=== PATIENT | female | born 1940 | race Two or more races ===

== ENCOUNTER → 2022-01-16 | Outpatient (CLI) | payer OTHER | END | disposition home or self-care (01) | LOC: XYW 14:44 | PROVIDERS: ATTEND Internal Medicine | DX: I08.3 Combined rheumatic disorders of mitral, aortic and tricuspid valves (principal); I48.11 Longstanding persistent atrial fibrillation | CPT/HCPCS: 93306 ==

== ENCOUNTER → 2022-01-30 | Outpatient (CLI) | payer OTHER ==
[~2022-01-30] MED LIST: DRON400T PO; METO25TA5 PO; PANT1INJ3 PO; SIMV10TA84 PO; TRAZ50TA2 PO; WARF5TAB71 PO; [UNRECOGNIZED DRUG - CODE] XX
[2022-01-30 12:04] LABS: Basophils # (auto) 0 10 ^3/uL (0-0.2); Basophils % (auto) 0.6 % (0.0-2.0); Eosinophils # (auto) 0.1 10 ^3/uL (0-0.8); Eosinophils % (auto) 1.5 % (0.0-7.0); Hematocrit 41.4 % (36.0-46.0); Hemoglobin 13.4 g/dL (12.2-16.2); Lymphocytes # (auto) 1.7 10 ^3/uL (0.4-5.4); Lymphocytes % (auto) 30.8 % (10.0-50.0); Mean Corpuscular Hemoglobin 29.4 pg (28.0-32.0); Mean Corpuscular Hgb Conc. 32.3 g/dL (32.0-36.0); Monocytes # (auto) 0.4 10 ^3/uL (0-1.3); Monocytes % (auto) 7.6 % (0.0-12.0); Neutrophils # (auto) 3.4 10 ^3/uL (1.6-8.6); Neutrophils % (auto) 59.5 % (37.0-80.0); Red Blood Cells 4.56 10^6/uL (4.0-5.20); Red Cell Distribution Width 13.6 % (11.8-14.3); White Blood Cell 5.7 10^3/uL (4.4-10.8)
[2022-01-30 12:29] LABS: Potassium 4.5 mmol/L (3.5-5.1)
[2022-01-30 12:49] LABS: Albumin 3.4 g/dL (3.4-5.0); BUN/Creatinine Ratio 13.8; Bilirubin, Total 0.4 mg/dL (0.2-1.0); Total Protein 7.6 g/dL (6.4-8.2)
== END | disposition home or self-care (01) ==
LOC: LAB 11:27
PROVIDERS: ATTEND Internal Medicine
DX: I10 Essential (primary) hypertension (principal)
CPT/HCPCS: 36415; 80053; 80061; 84443; 85025

== ENCOUNTER 2022-01-31 10:43 | Inpatient (IN) | payer OTHER ==
[~2022-01-31] VITALS: Ht 157.5 cm; Wt 70.4 kg
[2022-01-31 11:23] LABS: Basophils # (auto) 0 10 ^3/uL (0-0.2); Basophils % (auto) 0.4 % (0.0-2.0); Eosinophils # (auto) 0.1 10 ^3/uL (0-0.8); Eosinophils % (auto) 1.6 % (0.0-7.0); Hematocrit 41.5 % (36.0-46.0); Hemoglobin 13.9 g/dL (12.2-16.2); Lymphocytes # (auto) 1.9 10 ^3/uL (0.4-5.4); Lymphocytes % (auto) 30.6 % (10.0-50.0); Mean Corpuscular Hemoglobin 30.5 pg (28.0-32.0); Mean Corpuscular Hgb Conc. 33.4 g/dL (32.0-36.0); Mean Corpuscular Volume 91.4 fL (80.0-100.0); Monocytes # (auto) 0.4 10 ^3/uL (0-1.3); Monocytes % (auto) 7.2 % (0.0-12.0); Neutrophils # (auto) 3.7 10 ^3/uL (1.6-8.6); Neutrophils % (auto) 60.2 % (37.0-80.0); Nucleated Red Blood Cells % 0.1 %; Red Blood Cells 4.54 10^6/uL (4.0-5.20); Red Cell Distribution Width 13.2 % (11.8-14.3); White Blood Cell 6.1 10^3/uL (4.4-10.8)
[2022-01-31 11:37] LABS: INR 2.78 (0.9-1.15)
[2022-01-31 11:39] LABS: Albumin 3.7 g/dL (3.4-5.0); Calcium 8.9 mg/dL (8.5-10.1); Magnesium 2.4 mg/dL (1.6-2.6); Potassium 4.3 mmol/L (3.5-5.1)
[2022-01-31 11:43] LABS: BUN/Creatinine Ratio 13.7; Bilirubin, Total 0.5 mg/dL (0.2-1.0); Total Protein 7.3 g/dL (6.4-8.2)
[2022-01-31] MEDS ORDERED: MORPHINE SULFATE INJ 2 MG/ml SYRG IV PRN (14:30)
[2022-01-31] MEDS ORDERED: NITROGLYCERIN 0.4 MG SL TAB SL PRN (14:30)
[2022-01-31] MEDS ORDERED: SIMV10TA84 PO (14:43)
[2022-01-31] MEDS ORDERED: [UNRECOGNIZED DRUG - CODE] XX (14:43)
[2022-01-31] MEDS ORDERED: DRON400T PO (14:43)
[2022-01-31] MEDS ORDERED: PANT1INJ3 PO (14:43)
[2022-01-31] MEDS ORDERED: TRAZ50TA2 PO (14:43)
[2022-01-31] MEDS ORDERED: METO25TA5 PO (14:43)
[2022-01-31] MEDS ORDERED: WARF5TAB71 PO (14:43)
[2022-01-31 14:47] LABS: Cholesterol 150 mg/dL (< 200)
[2022-01-31 14:50] LABS: HDL Cholesterol 50 mg/dL (40-59); LDL Cholesterol 92 mg/dL (< 100); Triglycerides 144 mg/dL (< 150)
[2022-01-31] MEDS ORDERED: LORazepam 2MG/ML-1ML VIAL IV PRN (21:15)
[2022-02-01] MEDS: MECLIZINE HCL 25 MG TAB PO SCH ×2 (00:11→06:04)
[2022-02-01] MEDS: DRONEDARONE HCL 400 MG TAB PO SCH ×2 (00:11→10:19)
[2022-02-01] MEDS: METOPROLOL TARTRATE 25 MG TAB PO SCH ×2 (00:14→10:42)
[2022-02-01 05:57] LABS: Basophils # (auto) 0 10 ^3/uL (0-0.2); Basophils % (auto) 0.7 % (0.0-2.0); Eosinophils # (auto) 0.1 10 ^3/uL (0-0.8); Eosinophils % (auto) 1.3 % (0.0-7.0); Hematocrit 39.1 % (36.0-46.0); Hemoglobin 12.6 g/dL (12.2-16.2); Lymphocytes # (auto) 1.7 10 ^3/uL (0.4-5.4); Lymphocytes % (auto) 33.5 % (10.0-50.0); Mean Corpuscular Hemoglobin 29.6 pg (28.0-32.0); Mean Corpuscular Hgb Conc. 32.1 g/dL (32.0-36.0); Mean Corpuscular Volume 92.1 fL (80.0-100.0); Monocytes # (auto) 0.4 10 ^3/uL (0-1.3); Monocytes % (auto) 8.3 % (0.0-12.0); Neutrophils # (auto) 2.8 10 ^3/uL (1.6-8.6); Neutrophils % (auto) 56.2 % (37.0-80.0); Nucleated Red Blood Cells % 0.1 %; Red Blood Cells 4.24 10^6/uL (4.0-5.20); Red Cell Distribution Width 13.2 % (11.8-14.3)
[2022-02-01 06:15] LABS: Albumin 3.3 g/dL (3.4-5.0); BUN/Creatinine Ratio 18.2; Calcium 8.8 mg/dL (8.5-10.1)
[2022-02-01 06:24] LABS: Bilirubin, Total 0.4 mg/dL (0.2-1.0); Total Protein 6.4 g/dL (6.4-8.2)
[2022-02-01] MEDS ORDERED: ENOXAPARIN SOD 30 MG/0.3 ML SYRINGE SC SCH (10:00)
[2022-02-01] MEDS ORDERED: traZODone HCL 50 MG TAB PO SCH (10:00)
[2022-02-01] MEDS ORDERED: PRAVASTATIN SODIUM 20 MG TAB PO SCH (10:00)
[2022-02-01] MEDS ORDERED: PANTOPRAZOLE 40 MG/10 ML VIAL INJ IV SCH (10:00)
[2022-02-01 11:00] VITALS: BP 160/73
== END 2022-02-01 12:59 | disposition home or self-care (01) | DRG 69 ==
LOC: ER 10:43 → TELE 13:05
PROVIDERS: ADMIT Registered Nurse; ATTEND Internal Medicine
DX: G45.9 Transient cerebral ischemic attack, unspecified (principal); D68.9 Coagulation defect, unspecified; E78.5 Hyperlipidemia, unspecified; E16.2 Hypoglycemia, unspecified; H81.10 Benign paroxysmal vertigo, unspecified ear; I10 Essential (primary) hypertension; T45.515A Adverse effect of anticoagulants, initial encounter; Z20.822 Contact with and (suspected) exposure to COVID-19; Y92.89 Other specified places as the place of occurrence of the external cause; Z79.899 Other long term (current) drug therapy; Z86.73 Personal history of transient ischemic attack (TIA), and cerebral infarction without residual deficits; Z90.710 Acquired absence of both cervix and uterus; Z95.2 Presence of prosthetic heart valve; Z90.49 Acquired absence of other specified parts of digestive tract
CPT/HCPCS: 36415; 70450; 70496; 71045; 80053; 80061; 82962; 83036; 83735; 83880; 84443; 84484; 85025; 85610; 85730; 87426; 93005; C9113; G0378

== ENCOUNTER → 2022-01-31 | Outpatient (CLI) | payer OTHER ==
[~2022-01-31] VITALS: Ht 157.5 cm; Wt 68.9 kg
[~2022-01-31] MED LIST changes: +ADENOSINE 58 MG in GIVE UN-DILUTED 0 ML IV STA
[2022-01-31 09:55] VITALS: BP 148/69
[2022-01-31 11:27] VITALS: BP 130/68
== END | disposition home or self-care (01) ==
LOC: XYW 08:36
PROVIDERS: ATTEND Internal Medicine
DX: I48.91 Unspecified atrial fibrillation (principal); I49.5 Sick sinus syndrome
CPT/HCPCS: 36415; 78452; 87426; 93017; A9500; J0153

== ENCOUNTER 2022-06-26 21:44 | Emergency (ER) | payer OTHER ==
[~2022-06-26] VITALS: Ht 157.5 cm; Wt 81.0 kg
[~2022-06-26 21:44] MED LIST changes: -ADENOSINE 58 MG in GIVE UN-DILUTED 0 ML IV STA
[2022-06-26 23:15] LABS: Basophils # (auto) 0 10 ^3/uL (0-0.2); Basophils % (auto) 0.5 % (0.0-2.0); Eosinophils # (auto) 0 10 ^3/uL (0-0.8); Eosinophils % (auto) 0.5 % (0.0-7.0); Hematocrit 37.8 % (36.0-46.0); Hemoglobin 12.6 g/dL (12.2-16.2); Lymphocytes # (auto) 1.4 10 ^3/uL (0.4-5.4); Lymphocytes % (auto) 22.5 % (10.0-50.0); Mean Corpuscular Hemoglobin 30.9 pg (28.0-32.0); Mean Corpuscular Hgb Conc. 33.3 g/dL (32.0-36.0); Mean Corpuscular Volume 92.8 fL (80.0-100.0); Monocytes # (auto) 0.4 10 ^3/uL (0-1.3); Monocytes % (auto) 6.3 % (0.0-12.0); Neutrophils # (auto) 4.2 10 ^3/uL (1.6-8.6); Neutrophils % (auto) 70.2 % (37.0-80.0); Nucleated Red Blood Cells % 0.2 %; Red Blood Cells 4.07 10^6/uL (4.0-5.20); Red Cell Distribution Width 13.9 % (11.8-14.3); White Blood Cell 6.1 10^3/uL (4.4-10.8)
[2022-06-26 23:31] LABS: Albumin 3.5 g/dL (3.4-5.0); Calcium 8.5 mg/dL (8.5-10.1); Potassium 3.9 mmol/L (3.5-5.1)
[2022-06-26 23:35] LABS: BUN/Creatinine Ratio 11.6 (10.0-20.0); Bilirubin, Total 0.5 mg/dL (0.2-1.0); Total Protein 6.9 g/dL (6.4-8.2)
[2022-06-26 23:42] LABS: INR 1.59 (0.9-1.15); Partial Thromboplastin Time 35.2 sec (24.6-33.4)
[2022-06-27] MEDS ORDERED: SODIUM CHLORIDE 0.9% 500 ML IV ONE (04:15)
[2022-06-27 05:02] LABS: Urine Bacteria NONE SEEN /hpf (None Seen); Urine Blood Negative /uL (Negative); Urine Hyaline Cast MANY /lpf (0 - 2); Urine Mucus MODERATE (None Seen); Urine Specific Gravity 1.024 (1.001-1.035); Urine WBC 4 /hpf (0 - 5)
[2022-06-27 08:00] VITALS: BP 166/66
[2022-06-27] MEDS ORDERED: METR500T14 PO (08:37)
[2022-06-27] MEDS ORDERED: CIPR-173 PO (08:37)
== END 2022-06-27 08:34 | disposition home or self-care (01) ==
LOC: ER 21:44
DX: R31.9 Hematuria, unspecified (principal); I10 Essential (primary) hypertension; E78.5 Hyperlipidemia, unspecified; Z86.73 Personal history of transient ischemic attack (TIA), and cerebral infarction without residual deficits; Z90.710 Acquired absence of both cervix and uterus; Z90.49 Acquired absence of other specified parts of digestive tract; W19.XXXA Unspecified fall, initial encounter; Y93.89 Activity, other specified; Y92.89 Other specified places as the place of occurrence of the external cause; Y99.8 Other external cause status
CPT/HCPCS: 36415; 51702; 74176; 80053; 81001; 85025; 85610; 85730; 96360; 99285; J7040

== ENCOUNTER → 2022-09-20 | Outpatient (CLI) | payer OTHER ==
[~2022-09-20] MED LIST changes: +CIPR-173 PO; +METR-344 PO; +SIMV10TA20 PO; -SIMV10TA84 PO; +TRAZ-227 PO; -TRAZ50TA2 PO; +WARF-66 PO; -WARF5TAB71 PO
[2022-09-20 14:33] LABS: Basophils # (auto) 0 10 ^3/uL (0-0.2); Basophils % (auto) 0.6 % (0.0-2.0); Eosinophils # (auto) 0.1 10 ^3/uL (0-0.8); Eosinophils % (auto) 1.8 % (0.0-7.0); Hematocrit 40.3 % (36.0-46.0); Hemoglobin 13.2 g/dL (12.2-16.2); Lymphocytes # (auto) 1.7 10 ^3/uL (0.4-5.4); Lymphocytes % (auto) 32.5 % (10.0-50.0); Mean Corpuscular Hemoglobin 30.8 pg (28.0-32.0); Mean Corpuscular Hgb Conc. 32.8 g/dL (32.0-36.0); Mean Corpuscular Volume 93.9 fL (80.0-100.0); Monocytes # (auto) 0.4 10 ^3/uL (0-1.3); Monocytes % (auto) 7.5 % (0.0-12.0); Neutrophils % (auto) 57.6 % (37.0-80.0); Nucleated Red Blood Cells % 0.1 %; Red Blood Cells 4.29 10^6/uL (4.0-5.20); Red Cell Distribution Width 13.1 % (11.8-14.3); White Blood Cell 5.3 10^3/uL (4.4-10.8)
[2022-09-20 15:04] LABS: Albumin 3.5 g/dL (3.4-5.0); Calcium 9.5 mg/dL (8.5-10.1); Potassium 4.2 mmol/L (3.5-5.1)
[2022-09-20 15:10] LABS: Bilirubin, Total 0.3 mg/dL (0.2-1.0); Total Protein 7.5 g/dL (6.4-8.2)
== END | disposition home or self-care (01) ==
LOC: LAB 14:00
PROVIDERS: ATTEND Internal Medicine
DX: I10 Essential (primary) hypertension (principal); Z29.9 Encounter for prophylactic measures, unspecified
CPT/HCPCS: 36415; 80053; 80061; 83036; 84439; 84443; 85025

== ENCOUNTER → 2022-11-22 | Outpatient (CLI) | payer OTHER | END | disposition home or self-care (01) | LOC: LAB 14:45 | PROVIDERS: ATTEND Internal Medicine | DX: Z13.820 Encounter for screening for osteoporosis (principal); Z12.11 Encounter for screening for malignant neoplasm of colon; E55.9 Vitamin D deficiency, unspecified | CPT/HCPCS: 82306 ==

== ENCOUNTER 2022-12-30 14:19 | Inpatient (IN) | payer OTHER ==
[~2022-12-30] VITALS: Ht 157.5 cm; Wt 76.5 kg
[2022-12-30 15:08] LABS: Basophils # (auto) 0 10 ^3/uL (0-0.2); Basophils % (auto) 0.6 % (0.0-2.0); Eosinophils # (auto) 0.1 10 ^3/uL (0-0.8); Eosinophils % (auto) 2.4 % (0.0-7.0); Hematocrit 38.5 % (36.0-46.0); Hemoglobin 12.4 g/dL (12.2-16.2); Lymphocytes # (auto) 1.7 10 ^3/uL (0.4-5.4); Lymphocytes % (auto) 37.2 % (10.0-50.0); Mean Corpuscular Hemoglobin 30.2 pg (28.0-32.0); Mean Corpuscular Hgb Conc. 32.2 g/dL (32.0-36.0); Mean Corpuscular Volume 93.7 fL (80.0-100.0); Monocytes # (auto) 0.4 10 ^3/uL (0-1.3); Monocytes % (auto) 8.5 % (0.0-12.0); Neutrophils # (auto) 2.3 10 ^3/uL (1.6-8.6); Neutrophils % (auto) 51.3 % (37.0-80.0); Nucleated Red Blood Cells % 0.1 %; Red Blood Cells 4.11 10^6/uL (4.0-5.20); Red Cell Distribution Width 14.1 % (11.8-14.3); White Blood Cell 4.5 10^3/uL (4.4-10.8)
[2022-12-30 15:23] LABS: INR 2.14 (0.9-1.15); Partial Thromboplastin Time 39.5 SEC (24.5-34.5); Prothrombin Time 21.4 sec (9.3-11.8)
[2022-12-30 16:07] LABS: Alanine Aminotransferase 18 U/L (7-40); Albumin 4.1 g/dL (3.2-4.8); Alkaline Phosphatase 87 U/L (46-116); Anion Gap 6 (5-15); Aspartate Aminotransferase 22 U/L (13-40); BUN/Creatinine Ratio 10.7 (10.0-20.0); Blood Urea Nitrogen 13 mg/dL (9-23); Calcium 8.6 mg/dL (8.7-10.4); Carbon Dioxide 24 mmol/L (20-30); Chloride 112 mmol/L (98-107); Glucose 89 mg/dL (74-106); Magnesium 2.3 mg/dL (1.6-2.6); Sodium 142 mmol/L (136-145)
[2022-12-30 16:08] LABS: Bilirubin, Total 0.4 mg/dL (0.2-1.0); Total Protein 6.8 g/dL (5.7-8.2)
[2022-12-30] MEDS ORDERED: cloNIDine 0.1 mg/24hr 7 DAY PATCH TD ONE (17:45)
[2022-12-30] MEDS ORDERED: IOHEXOL 350 MG/ML 100ML IJ ONE (17:57)
[2022-12-30] MEDS ORDERED: cloNIDine HCL 0.1 MG TAB PO ONE (18:00)
[2022-12-30] MEDS ORDERED: diphenhdrAMINE HCL 50 MG/1 ML VL IM ONE (18:45)
[2022-12-30 19:09] VITALS: PULSE 64; RESP 14; O2SAT 100
[2022-12-30 19:25] VITALS: PULSE 56; RESP 18; O2SAT 100
[2022-12-30] MEDS ORDERED: PANT40TA2 PO (20:19)
[2022-12-30] MEDS ORDERED: MECL25CH38 PO (20:19)
[2022-12-30] MEDS ORDERED: NIFE1TAB31 PO (20:19)
[2022-12-30] MEDS ORDERED: RANO500T3 PO (20:19)
[2022-12-30] MEDS ORDERED: DRON400T PO (20:19)
[2022-12-30] MEDS ORDERED: ACETAMINOPHEN 325 MG TAB PO PRN (21:30)
[2022-12-30] MEDS ORDERED: [UNRECOGNIZED DRUG - OTHER] PO SCH (21:30)
[2022-12-30] MEDS ORDERED: ONDANSETRON HCL 4 MG/2 ML VIAL IV PRN (21:30)
[2022-12-30] MEDS ORDERED: DOCUSATE SOD 100 MG CAP PO PRN (21:30)
[2022-12-30] MEDS ORDERED: HYDROcodone-ACET 5/325MG TAB PO PRN (21:30)
[2022-12-30] MEDS: CARVEDILOL 12.5 MG TAB PO SCH (22:00)
[2022-12-30] MEDS: SODIUM CHLOR 0.9% PF (SALINE LOCK) 10ML VIAL/SYR IV SCH (22:24)
[2022-12-30] MEDS: FAMOTIDINE (10MG/ML) 2ML VL IV SCH (22:31)
[2022-12-30] MEDS ORDERED: MORPHINE SULFATE INJ 2 MG/ml SYRG IV PRN (23:15)
[2022-12-30] MEDS ORDERED: NITROGLYCERIN 0.4 MG SL TAB SL PRN (23:15)
[2022-12-31] MEDS: cloNIDine HCL 0.1 MG TAB PO PRN (02:53)
[2022-12-31] MEDS: SODIUM CHLOR 0.9% PF (SALINE LOCK) 10ML VIAL/SYR IV SCH ×3 (06:01→23:17)
[2022-12-31 06:26] LABS: Basophils # (auto) 0 10 ^3/uL (0-0.2); Basophils % (auto) 0.5 % (0.0-2.0); Eosinophils # (auto) 0.1 10 ^3/uL (0-0.8); Eosinophils % (auto) 2.4 % (0.0-7.0); Hematocrit 35.9 % (36.0-46.0); Hemoglobin 11.9 g/dL (12.2-16.2); Lymphocytes # (auto) 1.5 10 ^3/uL (0.4-5.4); Lymphocytes % (auto) 40.5 % (10.0-50.0); Mean Corpuscular Hemoglobin 31.3 pg (28.0-32.0); Mean Corpuscular Hgb Conc. 33.2 g/dL (32.0-36.0); Mean Corpuscular Volume 94.1 fL (80.0-100.0); Monocytes # (auto) 0.4 10 ^3/uL (0-1.3); Monocytes % (auto) 9.5 % (0.0-12.0); Neutrophils # (auto) 1.8 10 ^3/uL (1.6-8.6); Neutrophils % (auto) 47.1 % (37.0-80.0); Nucleated Red Blood Cells % 0.2 %; Red Blood Cells 3.82 10^6/uL (4.0-5.20); Red Cell Distribution Width 13.9 % (11.8-14.3); White Blood Cell 3.8 10^3/uL (4.4-10.8)
[2022-12-31 08:00] VITALS: PULSE 53; RESP 15; O2SAT 96
[2022-12-31] MEDS: CARVEDILOL 12.5 MG TAB PO SCH ×2 (10:00→22:00)
[2022-12-31] MEDS: FAMOTIDINE (10MG/ML) 2ML VL IV SCH ×2 (10:31→23:16)
[2022-12-31 19:30] VITALS: PULSE 61; RESP 17; O2SAT 95
[2022-12-31 20:00] VITALS: BP 140/59; PULSE 60; RESP 18; TEMP 98.9; O2SAT 99
[2022-12-31 23:04] VITALS: BP 141/77; PULSE 55; RESP 18; TEMP 97.5; O2SAT 99
[2023-01-01 00:03] VITALS: BP 161/67; PULSE 56; RESP 18; TEMP 97.5; O2SAT 99
[2023-01-01] MEDS: cloNIDine HCL 0.1 MG TAB PO PRN (05:34)
[2023-01-01 05:44] VITALS: BP 168/68; PULSE 60; RESP 18; TEMP 94.4; O2SAT 95
[2023-01-01] MEDS: SODIUM CHLOR 0.9% PF (SALINE LOCK) 10ML VIAL/SYR IV SCH (06:32)
[2023-01-01 08:00] VITALS: BP_SYST 146; BP_SYST 148; BP_DIAS 67; BP_DIAS 69; PULSE 59; PULSE 60; PULSE 67; RESP 20; RESP 21; TEMP 97.4; TEMP 97.6; O2SAT 98
[2023-01-01] MEDS: FAMOTIDINE (10MG/ML) 2ML VL IV SCH (09:42)
[2023-01-01] MEDS: CARVEDILOL 12.5 MG TAB PO SCH (09:43)
[2023-01-01 12:00] VITALS: BP 112/92; PULSE 89; RESP 21; TEMP 97.4; O2SAT 95
[2023-01-01] MEDS ORDERED: CLOP75TA28 PO (14:38)
[2023-01-01] MEDS ORDERED: ATOR-47 PO (14:38)
[2023-01-01 15:11] VITALS: BP 112/92; PULSE 89; RESP 21; TEMP 97.4; O2SAT 95
[2023-01-01 16:00] VITALS: BP 134/66; PULSE 60; RESP 20; TEMP 97.6; O2SAT 96
== END 2023-01-01 16:25 | disposition home or self-care (01) | DRG 68 ==
LOC: ER 14:19 → TELE 23:10 → TELE-EAST 12-31 21:33
PROVIDERS: ADMIT Internal Medicine
DX: I65.23 Occlusion and stenosis of bilateral carotid arteries (principal); I25.10 Atherosclerotic heart disease of native coronary artery without angina pectoris; E78.5 Hyperlipidemia, unspecified; I11.9 Hypertensive heart disease without heart failure; I25.2 Old myocardial infarction; Z86.73 Personal history of transient ischemic attack (TIA), and cerebral infarction without residual deficits; Z90.710 Acquired absence of both cervix and uterus; Z95.2 Presence of prosthetic heart valve; Z90.49 Acquired absence of other specified parts of digestive tract
CPT/HCPCS: 36415; 70450; 70496; 70551; 71045; 80053; 83735; 83880; 84484; 85025; 85610; 85730; 93005; 93306; 96372; 99291; G0378; J3490

== ENCOUNTER → 2023-01-23 | Outpatient (CLI) | payer OTHER ==
[~2023-01-23] MED LIST changes: +ATOR-47 PO; +CLOP75TA28 PO; +MECL25CH38 PO; +NIFE1TAB31 PO; +PANT40TA2 PO; +RANO500T3 PO
[2023-01-23 11:11] LABS: Basophils # (auto) 0 10 ^3/uL (0-0.2); Basophils % (auto) 0.8 % (0.0-2.0); Eosinophils # (auto) 0.1 10 ^3/uL (0-0.8); Hematocrit 37.2 % (36.0-46.0); Hemoglobin 12.5 g/dL (12.2-16.2); Lymphocytes % (auto) 34.9 % (10.0-50.0); Mean Corpuscular Hemoglobin 30.8 pg (28.0-32.0); Mean Corpuscular Hgb Conc. 33.5 g/dL (32.0-36.0); Monocytes # (auto) 0.4 10 ^3/uL (0-1.3); Monocytes % (auto) 7.3 % (0.0-12.0); Neutrophils # (auto) 3.2 10 ^3/uL (1.6-8.6); Nucleated Red Blood Cells % 0.1 %; Red Blood Cells 4.04 10^6/uL (4.0-5.20); Red Cell Distribution Width 13.7 % (11.8-14.3); White Blood Cell 5.8 10^3/uL (4.4-10.8)
[2023-01-23 11:23] LABS: Urine Bacteria FEW /hpf (None Seen); Urine Blood Negative /uL (Negative); Urine Clarity HAZY (Clear); Urine Color Yellow (Yellow); Urine Hyaline Cast FEW /lpf (0 - 2); Urine Mucus FEW (None Seen); Urine Protein, UAD TRACE (Negative); Urine Specific Gravity 1.021 (1.001-1.035); Urine WBC 5 /hpf (0 - 5); Urine pH 5.5 (5.0-8.0)
[2023-01-23 11:58] LABS: Alanine Aminotransferase 13 U/L (7-40); Albumin 4.1 g/dL (3.2-4.8); Alkaline Phosphatase 75 U/L (46-116); Anion Gap 7 (5-15); Aspartate Aminotransferase 15 U/L (13-40); BUN/Creatinine Ratio 13.4 (10.0-20.0); Bilirubin, Total 0.4 mg/dL (0.2-1.0); Blood Urea Nitrogen 20 mg/dL (9-23); Carbon Dioxide 28 mmol/L (20-30); Chloride 107 mmol/L (98-107); Cholesterol 112 mg/dL (< 200); Glucose 107 mg/dL (74-106); HDL Cholesterol 33 mg/dL (40-59); LDL Cholesterol 63 mg/dL (< 100); Potassium 4.2 mmol/L (3.5-5.1); Sodium 142 mmol/L (136-145); Total Protein 6.8 g/dL (5.7-8.2); Triglycerides 94 mg/dL (< 150)
== END | disposition home or self-care (01) ==
LOC: LAB 10:39
PROVIDERS: ATTEND Internal Medicine
DX: Z00.01 Encounter for general adult medical examination with abnormal findings (principal); M81.0 Age-related osteoporosis without current pathological fracture; E55.9 Vitamin D deficiency, unspecified
CPT/HCPCS: 36415; 80053; 80061; 81001; 82306; 83036; 84439; 84443; 85025

== ENCOUNTER 2023-01-26 10:53 | Inpatient (IN) | payer OTHER ==
[~2023-01-26] VITALS: Ht 157.5 cm; Wt 72.9 kg
[2023-01-26] MEDS ORDERED: SODIUM CHLORIDE 0.9% 1,000 ML IV ONE (11:30)
[2023-01-26 12:03] LABS: Basophils # (auto) 0 10 ^3/uL (0-0.2); Basophils % (auto) 0.5 % (0.0-2.0); Eosinophils # (auto) 0.1 10 ^3/uL (0-0.8); Eosinophils % (auto) 1.3 % (0.0-7.0); Hematocrit 40.9 % (36.0-46.0); Hemoglobin 13.3 g/dL (12.2-16.2); Lymphocytes # (auto) 1.7 10 ^3/uL (0.4-5.4); Lymphocytes % (auto) 27.1 % (10.0-50.0); Mean Corpuscular Hemoglobin 30.3 pg (28.0-32.0); Mean Corpuscular Hgb Conc. 32.5 g/dL (32.0-36.0); Mean Corpuscular Volume 93.3 fL (80.0-100.0); Monocytes # (auto) 0.5 10 ^3/uL (0-1.3); Monocytes % (auto) 8.1 % (0.0-12.0); Nucleated Red Blood Cells % 0.1 %; Red Blood Cells 4.38 10^6/uL (4.0-5.20); Red Cell Distribution Width 13.5 % (11.8-14.3); White Blood Cell 6.4 10^3/uL (4.4-10.8)
[2023-01-26 12:23] LABS: Partial Thromboplastin Time 53.7 SEC (24.5-34.5)
[2023-01-26 12:29] LABS: Alanine Aminotransferase 13 U/L (7-40); Albumin 4.1 g/dL (3.2-4.8); Alkaline Phosphatase 84 U/L (46-116); Anion Gap 7 (5-15); Aspartate Aminotransferase 16 U/L (13-40); BUN/Creatinine Ratio 14.2 (10.0-20.0); Blood Urea Nitrogen 19 mg/dL (9-23); Calcium 8.7 mg/dL (8.7-10.4); Carbon Dioxide 26 mmol/L (20-30); Chloride 108 mmol/L (98-107); Glucose 94 mg/dL (74-106); Sodium 141 mmol/L (136-145)
[2023-01-26 12:30] LABS: Bilirubin, Total 0.5 mg/dL (0.2-1.0); Total Protein 6.7 g/dL (5.7-8.2)
[2023-01-26 12:36] LABS: INR > 8.0 (0.9-1.15)
[2023-01-26 14:36] LABS: COVID19 ANTIGEN SOFIA FIA NEGATIVE (NEGATIVE); Rapid Influenza A Negative (Negative); Rapid Influenza B Negative (Negative)
[2023-01-26] MEDS ORDERED: RANOLAZINE ER 500 MG TAB PO PRN (14:45)
[2023-01-26] MEDS ORDERED: ACETAMINOPHEN 325 MG TAB PO PRN (15:15)
[2023-01-26] MEDS ORDERED: NITROGLYCERIN 0.4 MG SL TAB SL PRN (15:15)
[2023-01-26] MEDS ORDERED: MORPHINE SULFATE INJ 2 MG/ml SYRG IV PRN (15:15)
[2023-01-26 19:50] VITALS: PULSE 72; RESP 18; O2SAT 95
[2023-01-26] MEDS: SODIUM CHLORIDE 0.9% 1,000 ML IV SCH (20:31)
[2023-01-26] MEDS ORDERED: METOPROLOL TARTRATE 25 MG TAB ONE (22:29)
[2023-01-26] MEDS ORDERED: MECLIZINE HCL 25 MG TAB ONE (22:29)
[2023-01-26] MEDS ORDERED: NIFEdipine ER 30 MG TAB PO ONE (22:29)
[2023-01-26] MEDS: MECLIZINE HCL 25 MG TAB PO SCH (22:33)
[2023-01-26] MEDS: METOPROLOL TARTRATE 25 MG TAB PO SCH (22:33)
[2023-01-26] MEDS: NIFEdipine ER 30 MG TAB PO SCH (22:33)
[2023-01-26] MEDS: [UNRECOGNIZED DRUG - OTHER] PO SCH (22:35)
[2023-01-27] VITALS (7 sets, daily range): BP systolic 118–164; BP diastolic 53–85; PULSE 50–95; RESP 14–20; TEMP 97.7–99.1; O2SAT 92–100
[2023-01-27 05:48] LABS: Basophils # (auto) 0 10 ^3/uL (0-0.2); Basophils % (auto) 0.7 % (0.0-2.0); Eosinophils # (auto) 0.1 10 ^3/uL (0-0.8); Eosinophils % (auto) 2.3 % (0.0-7.0); Hematocrit 38.5 % (36.0-46.0); Hemoglobin 12.6 g/dL (12.2-16.2); Lymphocytes % (auto) 36.6 % (10.0-50.0); Mean Corpuscular Hemoglobin 30.8 pg (28.0-32.0); Mean Corpuscular Hgb Conc. 32.6 g/dL (32.0-36.0); Mean Corpuscular Volume 94.7 fL (80.0-100.0); Monocytes # (auto) 0.5 10 ^3/uL (0-1.3); Monocytes % (auto) 9.4 % (0.0-12.0); Neutrophils # (auto) 2.8 10 ^3/uL (1.6-8.6); Nucleated Red Blood Cells % 0.1 %; Red Blood Cells 4.07 10^6/uL (4.0-5.20); Red Cell Distribution Width 14.1 % (11.8-14.3); White Blood Cell 5.5 10^3/uL (4.4-10.8)
[2023-01-27] MEDS: [UNRECOGNIZED DRUG - OTHER] PO SCH ×3 (06:00→22:00)
[2023-01-27 06:08] LABS: Alanine Aminotransferase 15 U/L (7-40); Albumin 3.8 g/dL (3.2-4.8); Alkaline Phosphatase 77 U/L (46-116); Anion Gap 11 (5-15); Aspartate Aminotransferase 20 U/L (13-40); BUN/Creatinine Ratio 6.7 (10.0-20.0); Calcium 8.8 mg/dL (8.5-10.1); Carbon Dioxide 19 mmol/L (20-30); Chloride 113 mmol/L (98-107); Glucose 81 mg/dL (74-106); Potassium 4.3 mmol/L (3.5-5.1); Sodium 143 mmol/L (136-145)
[2023-01-27 06:09] LABS: Bilirubin, Total 0.3 mg/dL (0.2-1.0); Total Protein 6.5 g/dL (5.7-8.2)
[2023-01-27 06:25] LABS: Blood Urea Nitrogen 8 mg/dL (9-23)
[2023-01-27] MEDS: MECLIZINE HCL 25 MG TAB PO SCH ×3 (06:55→23:04)
[2023-01-27 07:50] LABS: INR > 8.0 (0.9-1.15)
[2023-01-27] MEDS: SODIUM CHLORIDE 0.9% 1,000 ML IV SCH (07:55)
[2023-01-27] MEDS: METOPROLOL TARTRATE 25 MG TAB PO SCH ×2 (10:00→23:03)
[2023-01-27] MEDS ORDERED: ASPirin-EC 81 mg tab PO ONE (10:30)
[2023-01-27] MEDS ORDERED: PRAVASTATIN SODIUM 20 MG TAB ONE (10:30)
[2023-01-27] MEDS ORDERED: METOPROLOL SUCCINATE XL 50 MG TAB PO ONE (10:30)
[2023-01-27] MEDS ORDERED: ENOXAPARIN SOD 40 MG/0.4 ML SYRINGE SC ONE (10:30)
[2023-01-27] MEDS ORDERED: ENALAPRIL MALEATE 2.5 MG TAB ONE (10:30)
[2023-01-27] MEDS ORDERED: traZODone HCL 50 MG TAB ONE (11:07)
[2023-01-27] MEDS ORDERED: CLOPIDOGREL BISULFATE 75 MG TAB ONE (11:07)
[2023-01-27] MEDS ORDERED: PANTOPRAZOLE 40 MG TAB PO ONE (11:07)
[2023-01-27] MEDS ORDERED: ATORVASTATIN 20 MG TAB ONE (11:08)
[2023-01-27] MEDS ORDERED: METOPROLOL TARTRATE 25 MG TAB ONE ×2 (11:08→22:59)
[2023-01-27] MEDS: PANTOPRAZOLE 40 MG TAB PO SCH (11:09)
[2023-01-27] MEDS: traZODone HCL 50 MG TAB PO SCH (11:09)
[2023-01-27] MEDS: CLOPIDOGREL BISULFATE 75 MG TAB PO SCH (11:09)
[2023-01-27] MEDS: ATORVASTATIN 20 MG TAB PO SCH (11:09)
[2023-01-27] MEDS ORDERED: LACTULOSE 20Gm/30ML SOLN ONE (16:26)
[2023-01-27] MEDS ORDERED: PANTOPRAZOLE 40 MG/10 ML VIAL INJ IV ONE (16:26)
[2023-01-27] MEDS ORDERED: MECLIZINE HCL 25 MG TAB ONE (22:59)
[2023-01-27] MEDS ORDERED: NIFEdipine ER 30 MG TAB PO ONE (22:59)
[2023-01-27] MEDS: NIFEdipine ER 30 MG TAB PO SCH (23:03)
[2023-01-28] MEDS: SODIUM CHLORIDE 0.9% 1,000 ML IV SCH (00:35)
[2023-01-28 02:05] VITALS: BP 150/69; PULSE 68; RESP 20; TEMP 97.7; O2SAT 100
[2023-01-28] MEDS: [UNRECOGNIZED DRUG - OTHER] PO SCH (06:00)
[2023-01-28 06:19] VITALS: BP 134/67; PULSE 52; RESP 16; TEMP 97.9; O2SAT 97
[2023-01-28 06:23] LABS: INR 3.99 (0.9-1.15); Partial Thromboplastin Time 48.7 SEC (24.5-34.5); Prothrombin Time 38.3 sec (9.3-11.8)
[2023-01-28] MEDS: MECLIZINE HCL 25 MG TAB PO SCH (07:23)
[2023-01-28 07:30] VITALS: PULSE 62
[2023-01-28 08:00] VITALS: BP 134/67; PULSE 52; PULSE 61; RESP 16; RESP 18; TEMP 97.7; O2SAT 97
[2023-01-28 09:00] VITALS: BP 159/85; PULSE 61; RESP 18; TEMP 97.7; O2SAT 95
[2023-01-28 09:11] VITALS: BP 159/85; PULSE 61; RESP 18; TEMP 97.7; O2SAT 95
[2023-01-28] MEDS: METOPROLOL TARTRATE 25 MG TAB PO SCH (09:49)
[2023-01-28] MEDS: CLOPIDOGREL BISULFATE 75 MG TAB PO SCH (09:49)
[2023-01-28] MEDS: ATORVASTATIN 20 MG TAB PO SCH (09:49)
[2023-01-28] MEDS: traZODone HCL 50 MG TAB PO SCH (09:50)
[2023-01-28] MEDS: PANTOPRAZOLE 40 MG TAB PO SCH (09:50)
== END 2023-01-28 10:39 | disposition home or self-care (01) | DRG 918 ==
LOC: ER 10:53 → TELE 15:15 → TELE-EAST 01-27 04:20
PROVIDERS: ADMIT Nurse Practitioner Family; ATTEND Nurse Practitioner Family
DX: T45.511A Poisoning by anticoagulants, accidental (unintentional), initial encounter (principal); K21.9 Gastro-esophageal reflux disease without esophagitis; E78.00 Pure hypercholesterolemia, unspecified; I25.10 Atherosclerotic heart disease of native coronary artery without angina pectoris; I10 Essential (primary) hypertension; Z20.822 Contact with and (suspected) exposure to COVID-19; I65.23 Occlusion and stenosis of bilateral carotid arteries; Z95.1 Presence of aortocoronary bypass graft; Z95.2 Presence of prosthetic heart valve; Z90.710 Acquired absence of both cervix and uterus; Z86.73 Personal history of transient ischemic attack (TIA), and cerebral infarction without residual deficits; Z79.899 Other long term (current) drug therapy; Z90.49 Acquired absence of other specified parts of digestive tract; Y92.89 Other specified places as the place of occurrence of the external cause; Z91.148 Patient's other noncompliance with medication regimen for other reason
CPT/HCPCS: 36415; 70450; 71045; 80053; 83605; 83735; 83880; 84443; 84484; 85025; 85610; 85730; 87040; 87426; 87804; 93005; 96360; C9113; G0378

== ENCOUNTER 2023-02-09 04:47 | Inpatient (IN) | payer OTHER ==
[~2023-02-09] VITALS: Ht 157.5 cm; Wt 62.0 kg
[2023-02-09 06:23] VITALS: PULSE 70; RESP 18; O2SAT 98
[2023-02-09] MEDS ORDERED: NITROGLYCERIN 0.4 MG SL TAB SL PRN (07:00)
[2023-02-09] MEDS ORDERED: MORPHINE SULFATE INJ 2 MG/ml SYRG IV PRN (07:00)
[2023-02-09] MEDS ORDERED: ONDANSETRON HCL 4 MG/2 ML VIAL IV PRN (07:00)
[2023-02-09] MEDS ORDERED: ACETAMINOPHEN 325 MG TAB PO PRN (07:00)
[2023-02-09] MEDS ORDERED: CHOL20007 OR (07:22)
[2023-02-09 08:00] VITALS: PULSE 81
[2023-02-09 08:11] LABS: Alanine Aminotransferase 15 U/L (7-40); Albumin 3.7 g/dL (3.2-4.8); Alkaline Phosphatase 60 U/L (46-116); Anion Gap 12 (5-15); Aspartate Aminotransferase 19 U/L (13-40); BUN/Creatinine Ratio 18.5 (10.0-20.0); Bilirubin, Total 0.4 mg/dL (0.2-1.0); Blood Urea Nitrogen 17 mg/dL (9-23); Calcium 8.5 mg/dL (8.5-10.1); Carbon Dioxide 22 mmol/L (20-30); Chloride 112 mmol/L (98-107); Glucose 114 mg/dL (74-106); Sodium 146 mmol/L (136-145); Total Protein 6.1 g/dL (5.7-8.2)
[2023-02-09 08:13] LABS: Basophils # (auto) 0 10 ^3/uL (0-0.2); Basophils % (auto) 0.2 % (0.0-2.0); Eosinophils # (auto) 0 10 ^3/uL (0-0.8); Hematocrit 37.2 % (36.0-46.0); Hemoglobin 12.1 g/dL (12.2-16.2); Lymphocytes # (auto) 0.9 10 ^3/uL (0.4-5.4); Lymphocytes % (auto) 15.2 % (10.0-50.0); Mean Corpuscular Hemoglobin 29.8 pg (28.0-32.0); Mean Corpuscular Hgb Conc. 32.5 g/dL (32.0-36.0); Mean Corpuscular Volume 91.6 fL (80.0-100.0); Monocytes # (auto) 0.3 10 ^3/uL (0-1.3); Monocytes % (auto) 4.9 % (0.0-12.0); Neutrophils # (auto) 4.9 10 ^3/uL (1.6-8.6); Neutrophils % (auto) 79.7 % (37.0-80.0); Nucleated Red Blood Cells % 0.1 %; Red Blood Cells 4.06 10^6/uL (4.0-5.20); Red Cell Distribution Width 13.3 % (11.8-14.3); White Blood Cell 6.1 10^3/uL (4.4-10.8)
[2023-02-09 09:00] VITALS: BP 159/91; PULSE 78; RESP 15; TEMP 98.3; O2SAT 99
[2023-02-09 09:51] LABS: INR 1.3 (0.9-1.15); Partial Thromboplastin Time 26.9 SEC (24.5-34.5); Prothrombin Time 13.4 sec (9.3-11.8)
[2023-02-09] MEDS ORDERED: RANOLAZINE ER 500 MG TAB PO SCH (10:00)
[2023-02-09] MEDS ORDERED: NIFEdipine ER 30 MG TAB PO SCH (10:00)
[2023-02-09] MEDS ORDERED: CLOPIDOGREL BISULFATE 75 MG TAB PO SCH (10:00)
[2023-02-09] MEDS ORDERED: METOPROLOL SUCCINATE XL 50 MG TAB PO SCH (10:00)
[2023-02-09] MEDS ORDERED: LISINOPRIL 5 MG TAB PO ONE (11:15)
[2023-02-09] MEDS ORDERED: cefTRIAXone 1GM/50ML D5W 50 ML IV ONE (12:15)
[2023-02-09 12:48] VITALS: BP 135/79; PULSE 82; RESP 16; TEMP 98.3; O2SAT 95
[2023-02-09 14:16] LABS: Rapid Influenza A Negative (Negative); Rapid Influenza B Negative (Negative)
[2023-02-09 14:17] LABS: COVID19 ANTIGEN SOFIA FIA NEGATIVE (NEGATIVE)
[2023-02-09 16:59] VITALS: BP 135/62; PULSE 74; RESP 17; TEMP 97.9; O2SAT 94
[2023-02-09] MEDS ORDERED: WARFARIN SODIUM 5 MG TAB PO ONE (17:00)
[2023-02-09] MEDS ORDERED: ATORVASTATIN 20 MG TAB PO SCH (22:00)
[2023-02-10] MEDS ORDERED: cefTRIAXone 1GM/50ML D5W 50 ML IV SCH (09:00)
[2023-02-10] MEDS ORDERED: LISINOPRIL 5 MG TAB PO SCH (10:00)
== END 2023-02-09 17:55 | disposition home health service (06) | DRG 89 ==
LOC: TELE-CENTR 06:17
PROVIDERS: ADMIT Internal Medicine; ATTEND Internal Medicine
DX: S06.0X0A Concussion without loss of consciousness, initial encounter (principal); N39.0 Urinary tract infection, site not specified; E78.5 Hyperlipidemia, unspecified; S00.03XA Contusion of scalp, initial encounter; I10 Essential (primary) hypertension; F03.90 Unspecified dementia, unspecified severity, without behavioral disturbance, psychotic disturbance, mood disturbance, and anxiety; S51.002A Unspecified open wound of left elbow, initial encounter; R55 Syncope and collapse; W18.39XA Other fall on same level, initial encounter; Y93.89 Activity, other specified; Y92.89 Other specified places as the place of occurrence of the external cause; Y99.8 Other external cause status; Z20.822 Contact with and (suspected) exposure to COVID-19
CPT/HCPCS: 36415; 70450; 80053; 83735; 83930; 84484; 85025; 85610; 85730; 87081; 87426; 87804; 93886; 97163; G0378

== ENCOUNTER 2023-04-03 09:16 | Inpatient (IN) | payer OTHER ==
[~2023-04-03] VITALS: Ht 157.5 cm; Wt 76.6 kg
[2023-04-03] VITALS (7 sets, daily range): BP systolic 125–169; BP diastolic 64–84; PULSE 58–68; RESP 16–18; TEMP 97.5–98.1; O2SAT 94–97
[~2023-04-03 09:16] MED LIST changes: +CHOL20007 OR; -SIMV10TA20 PO
[2023-04-03] MEDS ORDERED: NITROGLYCERIN 0.4 MG SL TAB SL PRN (10:15)
[2023-04-03] MEDS ORDERED: ACETAMINOPHEN 325 MG TAB PO PRN (10:15)
[2023-04-03] MEDS ORDERED: HYDROcodone-ACET 5/325MG TAB PO PRN (10:15)
[2023-04-03] MEDS ORDERED: MORPHINE SULFATE INJ 2 MG/ml SYRG IV PRN (10:15)
[2023-04-03 11:00] LABS: Basophils # (auto) 0 10 ^3/uL (0-0.2); Basophils % (auto) 0.8 % (0.0-2.0); Eosinophils # (auto) 0.1 10 ^3/uL (0-0.8); Eosinophils % (auto) 2.9 % (0.0-7.0); Hematocrit 35.6 % (36.0-46.0); Hemoglobin 11.6 g/dL (12.2-16.2); Lymphocytes # (auto) 1.7 10 ^3/uL (0.4-5.4); Lymphocytes % (auto) 36.6 % (10.0-50.0); Mean Corpuscular Hemoglobin 30.7 pg (28.0-32.0); Mean Corpuscular Hgb Conc. 32.5 g/dL (32.0-36.0); Mean Corpuscular Volume 94.5 fL (80.0-100.0); Monocytes # (auto) 0.5 10 ^3/uL (0-1.3); Monocytes % (auto) 10.1 % (0.0-12.0); Neutrophils # (auto) 2.2 10 ^3/uL (1.6-8.6); Neutrophils % (auto) 49.6 % (37.0-80.0); Red Blood Cells 3.77 10^6/uL (4.0-5.20); Red Cell Distribution Width 14.4 % (11.8-14.3); White Blood Cell 4.5 10^3/uL (4.4-10.8)
[2023-04-03] MEDS ORDERED: SIMV10TA20 PO (11:01)
[2023-04-03 11:07] LABS: Calcium 9.2 mg/dL (8.5-10.1); Chloride 108 mmol/L (98-107); Potassium 4.2 mmol/L (3.5-5.1); Sodium 141 mmol/L (136-145)
[2023-04-03 11:08] LABS: Anion Gap 6 (5-15); Carbon Dioxide 27 mmol/L (20-30)
[2023-04-03 11:13] LABS: BUN/Creatinine Ratio 12.9 (10.0-20.0); Blood Urea Nitrogen 16 mg/dL (9-23); Glucose 84 mg/dL (74-106)
[2023-04-03 12:00] LABS: INR 1.14 (0.9-1.15); Partial Thromboplastin Time 29.5 SEC (24.5-34.5); Prothrombin Time 11.9 sec (9.3-11.8)
[2023-04-03] MEDS: SODIUM CHLORIDE 0.9% 1,000 ML IV ONE (13:00)
[2023-04-03] MEDS: SODIUM CHLOR 0.9% PF (SALINE LOCK) 10ML VIAL/SYR IV SCH (14:00)
[2023-04-03] MEDS ORDERED: HEPARIN DRIP/D5W 100UNITS/ML 250 ML IV SCH (15:00)
[2023-04-03 15:59] LABS: Basophils # (auto) 0 10 ^3/uL (0-0.2); Basophils % (auto) 0.6 % (0.0-2.0); Eosinophils # (auto) 0.1 10 ^3/uL (0-0.8); Eosinophils % (auto) 2.7 % (0.0-7.0); Hematocrit 36.2 % (36.0-46.0); Hemoglobin 11.5 g/dL (12.2-16.2); Lymphocytes # (auto) 1.9 10 ^3/uL (0.4-5.4); Lymphocytes % (auto) 35.9 % (10.0-50.0); Mean Corpuscular Hemoglobin 30.4 pg (28.0-32.0); Mean Corpuscular Hgb Conc. 31.8 g/dL (32.0-36.0); Mean Corpuscular Volume 95.7 fL (80.0-100.0); Monocytes # (auto) 0.5 10 ^3/uL (0-1.3); Monocytes % (auto) 9.3 % (0.0-12.0); Neutrophils # (auto) 2.7 10 ^3/uL (1.6-8.6); Neutrophils % (auto) 51.5 % (37.0-80.0); Red Blood Cells 3.78 10^6/uL (4.0-5.20); Red Cell Distribution Width 14.9 % (11.8-14.3); White Blood Cell 5.2 10^3/uL (4.4-10.8)
[2023-04-03 16:16] LABS: INR 1.14 (0.9-1.15); Partial Thromboplastin Time 28.9 SEC (24.5-34.5); Prothrombin Time 11.9 sec (9.3-11.8)
[2023-04-03 16:46] LABS: Urine Bacteria FEW /hpf (None Seen); Urine Blood Negative /uL (Negative); Urine Clarity Clear (Clear); Urine Color Colorless (Yellow); Urine Hyaline Cast FEW /lpf (0 - 2); Urine Protein, UAD Negative (Negative); Urine Specific Gravity 1.009 (1.001-1.035); Urine Urobilinogen Normal (Negative); Urine WBC 4 /hpf (0 - 5)
[2023-04-03] MEDS: HEPARIN SODIUM (PORCINE) 5000 UNITS/ML 1ML VIAL IV ONE (19:00)
[2023-04-03] MEDS: HEPARIN DRIP/D5W 100UNITS/ML 250 ML IV SCH (19:02)
[2023-04-03] MEDS: ATORVASTATIN 20 MG TAB PO SCH (22:46)
[2023-04-04] MEDS: LORazepam 0.5 MG TAB PO PRN (00:18)
[2023-04-04 03:10] LABS: INR 1.16 (0.9-1.15); Partial Thromboplastin Time 28.8 SEC (24.5-34.5); Prothrombin Time 12.1 sec (9.3-11.8)
[2023-04-04] MEDS: HEPARIN SODIUM (PORCINE) 5000 UNITS/ML 1ML VIAL IV ONE (04:01)
[2023-04-04 05:00] VITALS: BP 142/75; PULSE 68; RESP 18; TEMP 98.2; O2SAT 93
[2023-04-04 05:53] LABS: Basophils # (auto) 0 10 ^3/uL (0-0.2); Basophils % (auto) 0.5 % (0.0-2.0); Eosinophils # (auto) 0.1 10 ^3/uL (0-0.8); Eosinophils % (auto) 2.6 % (0.0-7.0); Hematocrit 33.1 % (36.0-46.0); Hemoglobin 10.8 g/dL (12.2-16.2); Lymphocytes # (auto) 1.7 10 ^3/uL (0.4-5.4); Mean Corpuscular Hemoglobin 30.7 pg (28.0-32.0); Mean Corpuscular Hgb Conc. 32.5 g/dL (32.0-36.0); Mean Corpuscular Volume 94.5 fL (80.0-100.0); Monocytes # (auto) 0.4 10 ^3/uL (0-1.3); Neutrophils # (auto) 2.5 10 ^3/uL (1.6-8.6); Neutrophils % (auto) 52.9 % (37.0-80.0); Red Cell Distribution Width 14.3 % (11.8-14.3); White Blood Cell 4.7 10^3/uL (4.4-10.8)
[2023-04-04 06:05] LABS: Chloride 110 mmol/L (98-107); Sodium 140 mmol/L (136-145)
[2023-04-04 06:06] LABS: Anion Gap 7 (5-15); Calcium 8.5 mg/dL (8.7-10.4); Carbon Dioxide 23 mmol/L (20-30)
[2023-04-04 06:09] LABS: INR 1.16 (0.9-1.15); Partial Thromboplastin Time 29.4 SEC (24.5-34.5); Prothrombin Time 12.1 sec (9.3-11.8)
[2023-04-04 06:11] LABS: BUN/Creatinine Ratio 14.4 (10.0-20.0); Blood Urea Nitrogen 15 mg/dL (9-23); Glucose 83 mg/dL (74-106); Magnesium 2.1 mg/dL (1.6-2.6)
[2023-04-04 08:30] VITALS: PULSE 63; RESP 18; O2SAT 95
[2023-04-04 09:00] VITALS: BP 155/71; PULSE 67; RESP 20; TEMP 97.6; O2SAT 92
[2023-04-04 10:35] LABS: INR 1.11 (0.9-1.15); Partial Thromboplastin Time 28.8 SEC (24.5-34.5); Prothrombin Time 11.6 sec (9.3-11.8)
[2023-04-04 13:00] VITALS: BP 150/72; PULSE 62; RESP 18; TEMP 97.4; O2SAT 99
[2023-04-04] MEDS: LIDOCAINE 2%HCL (LOCAL ANESTH.) INJ 20ML MDV ONE (14:47)
[2023-04-04] MEDS: IODIXANOL 320MG/ML 100ML BTL IV ONE (14:47)
[2023-04-04] MEDS: SODIUM CHL 0.9% 0 ML ONE (14:53)
[2023-04-04] MEDS: ANGIOMAX 250 MG VIAL IV ONE (14:53)
[2023-04-04] MEDS: GLYCOPYRROLATE 0.2 MG/ML 1ML VIAL ONE ×2 (14:53)
[2023-04-04] MEDS: PHENYLEPHRINE IV 0 ML IV ONE (14:56)
[2023-04-04] MEDS ORDERED: ERGO1CAP12 PO (15:14)
[2023-04-04] MEDS: hydrALAZINE HCL 20 MG/ML VL ONE (15:32)
[2023-04-04] MEDS: ONDANSETRON HCL 4 MG/2 ML VIAL IV PRN (16:25)
[2023-04-04] MEDS ORDERED: WARFARIN SODIUM 2.5 MG TAB PO ONE (17:00)
[2023-04-04] MEDS ORDERED: WARFARIN SODIUM 5 MG TAB PO ONE (18:00)
[2023-04-04] MEDS ORDERED: WARF4TAB69 PO (18:49)
[2023-04-04] MEDS: HEPARIN DRIP/D5W 100UNITS/ML 250 ML IV SCH ×2 (18:51→23:08)
[2023-04-04] MEDS: MORPHINE SULFATE INJ 2 MG/ml SYRG IV PRN (18:55)
[2023-04-04 20:00] VITALS: PULSE 80; RESP 18; O2SAT 96
[2023-04-04 20:02] LABS: INR 1.18 (0.9-1.15); Prothrombin Time 12.3 sec (9.3-11.8)
[2023-04-04 20:06] LABS: Partial Thromboplastin Time 118.4 SEC (24.5-34.5)
[2023-04-04] MEDS: WARFARIN SODIUM 2 MG TAB PO ONE (20:08)
[2023-04-04] MEDS: WARFARIN SODIUM 5 MG TAB PO ONE (20:08)
[2023-04-04] MEDS: CYANOCOBALAMIN 500 MCG TAB PO ONE (20:10)
[2023-04-04 21:50] LABS: INR 1.14 (0.9-1.15); Prothrombin Time 11.9 sec (9.3-11.8)
[2023-04-04 21:52] LABS: Partial Thromboplastin Time 135.6 SEC (24.5-34.5)
[2023-04-04 22:00] VITALS: BP 136/58; PULSE 84; RESP 22; TEMP 98.6; O2SAT 96
[2023-04-05 05:00] VITALS: BP 126/71; PULSE 71; RESP 22; TEMP 98; O2SAT 98
[2023-04-05 07:26] LABS: INR 1.15 (0.9-1.15)
[2023-04-05 07:29] LABS: Partial Thromboplastin Time 84.7 SEC (24.5-34.5)
[2023-04-05 08:00] VITALS: BP 143/63; PULSE 71; RESP 16; TEMP 98.3; O2SAT 96
[2023-04-05] MEDS: CYANOCOBALAMIN 500 MCG TAB PO SCH (09:39)
[2023-04-05] MEDS ORDERED: ENOX80IN SC (11:10)
[2023-04-05] MEDS ORDERED: CYAN500T3 PO (11:10)
[2023-04-05 12:00] VITALS: BP 117/75; PULSE 86; RESP 16; TEMP 97.5; O2SAT 95
[2023-04-05] MEDS: WARFARIN SODIUM 5 MG TAB PO ONE (15:34)
[2023-04-05 16:00] VITALS: BP 121/85; PULSE 75; RESP 16; TEMP 98.5; O2SAT 96
[2023-04-05] MEDS ORDERED: WARFARIN SODIUM 5 MG TAB PO ONE (17:00)
== END 2023-04-05 18:05 | disposition home health service (06) | DRG 68 ==
LOC: TELE-CENTR 09:33
PROVIDERS: ADMIT Internal Medicine; ATTEND Internal Medicine
PROC: B4101ZZ Fluoroscopy of Abdominal Aorta using Low Osmolar Contrast (ICD-10-PCS; principal; 2023-04-04)
PROC: B44FZZZ Ultrasonography of Right Lower Extremity Arteries (ICD-10-PCS; 2023-04-04)
PROC: B3181ZZ Fluoroscopy of Bilateral Internal Carotid Arteries using Low Osmolar Contrast (ICD-10-PCS; 2023-04-04)
DX: I65.23 Occlusion and stenosis of bilateral carotid arteries (principal); I48.19 Other persistent atrial fibrillation; Q25.49 Other congenital malformations of aorta; I77.1 Stricture of artery; Z79.01 Long term (current) use of anticoagulants; E78.5 Hyperlipidemia, unspecified; I25.10 Atherosclerotic heart disease of native coronary artery without angina pectoris; F03.90 Unspecified dementia, unspecified severity, without behavioral disturbance, psychotic disturbance, mood disturbance, and anxiety; I11.9 Hypertensive heart disease without heart failure; Z86.73 Personal history of transient ischemic attack (TIA), and cerebral infarction without residual deficits; Z95.2 Presence of prosthetic heart valve; Z79.1 Long term (current) use of non-steroidal anti-inflammatories (NSAID); Z90.710 Acquired absence of both cervix and uterus
CPT/HCPCS: 36224; 36415; 76937; 80048; 81001; 82607; 83036; 83735; 85025; 85610; 85730; 93005; 99152; G0378; J2405; Q9967

== ENCOUNTER 2023-05-01 13:10 | Emergency (ER) | payer OTHER ==
[~2023-05-01] VITALS: Ht 157.5 cm; Wt 66.9 kg
[~2023-05-01 13:10] MED LIST changes: -CHOL20007 OR; -CIPR-173 PO; +CYAN500T3 PO; +ENOX80IN SC; +ERGO1CAP12 PO; -METR-344 PO; -PANT1INJ3 PO; +SIMV10TA20 PO; -TRAZ-227 PO; +WARF4TAB69 PO; -[UNRECOGNIZED DRUG - CODE] XX
[2023-05-01 13:16] VITALS: BP 155/74; PULSE 60; RESP 16; TEMP 97.7; O2SAT 99
== END 2023-05-01 17:30 | disposition home or self-care (01) ==
LOC: ER 13:10
DX: S63.591A Other specified sprain of right wrist, initial encounter (principal); M19.031 Primary osteoarthritis, right wrist; I10 Essential (primary) hypertension; E78.5 Hyperlipidemia, unspecified; Z86.73 Personal history of transient ischemic attack (TIA), and cerebral infarction without residual deficits; Z98.890 Other specified postprocedural states; Z79.899 Other long term (current) drug therapy; W01.0XXA Fall on same level from slipping, tripping and stumbling without subsequent striking against object, initial encounter; Y93.01 Activity, walking, marching and hiking; Y92.89 Other specified places as the place of occurrence of the external cause; Y99.8 Other external cause status
CPT/HCPCS: 73110; 73200

== ENCOUNTER → 2023-06-15 | Outpatient (CLI) | payer OTHER ==
[2023-06-15 16:42] LABS: INR 1.3 (0.9-1.15); Prothrombin Time 13.5 sec (9.3-11.8)
== END | disposition home or self-care (01) ==
LOC: LAB 16:09
PROVIDERS: ATTEND Physician Assistant
DX: I48.11 Longstanding persistent atrial fibrillation (principal); Z95.4 Presence of other heart-valve replacement; Z79.01 Long term (current) use of anticoagulants
CPT/HCPCS: 36415; 85610